=== PATIENT | female | born 2000 | race Caucasian/White ===

== ENCOUNTER 2024-08-14 19:45 | Emergency (ER) | payer SELFPAY ==
[2024-08-14 20:01] VITALS: BP 132/73; PULSE 96; TEMP 36.7; O2SAT 98; BMI 24.3
--- NOTE | 2024-08-14 20:40 | ED.FEMALEGU1 ---
HPI - Female Genitourinary General Chief complaint: Urogenital-Female Stated complaint: UTI Time Seen by Provider: 08/14/24 19:50 Source: patient Mode of arrival: walk-in Limitations: no limitations History of Present Illness HPI Narrative: 24-year-old female presenting for dysuria. It began today and she believes she has a UTI, she has had them before. She had minimal right sided back pain and no injury. No fever or gross hematuria or vomiting. Related Data Previous Rx's ?Medication ?Instructions ?Recorded cephalexin 500 mg capsule 500 mg PO TID 7 days #21 caps 08/14/24 Allergies Allergy/AdvReac Type Severity Reaction Status Date / Time No Known Drug Allergies Allergy Verified 08/14/24 20:04 Review of Systems ROS Narrative A ten point review of systems is negative except as noted above. Exam Narrative Exam Narrative: Nurses note and vital signs reviewed and patient is not hypoxic. General: The patient appears well and in no apparent distress. Patient is resting comfortably on cart. Skin: Warm, dry, no pallor noted. There is no rash noted. Head: Normocephalic, atraumatic Eye: Normal conjunctiva, no drainage Ears, Nose, Mouth, and Throat: oral mucosa is moist. Nares patent. Cardiovascular: Regular Rate and Rhythm Respiratory: Patient is in no distress, no accessory muscle use, lungs are clear to auscultation, no wheezing, rales or rhonchi Back: non-tender, no CVA tenderness bilaterally to percussion. GI: Soft and nontender Musculoskeletal: No joint swelling Neurological: A&O, normal speech Psychiatric: Cooperative Constitutional Vital Signs, click to edit/add: Last Vital Signs Temp 98.1 F 08/14/24 20:01 Pulse 96 H 08/14/24 20:01 Resp 16 08/14/24 20:01 BP 132/73 08/14/24 20:01 Pulse Ox 98 08/14/24 20:01 O2 Del Method Room Air 08/14/24 20:01 Course Vital Signs Vital signs: Vital Signs Temperature 98.1 F 08/14/24 20:01 Pulse Rate 96 H 08/14/24 20:01 Respiratory Rate 16 08/14/24 20:01 Blood Pressure 132/73 08/14/24 20:01 Pulse Oximetry 98 08/14/24 20:01 Oxygen Delivery Method Room Air 08/14/24 20:01 Temperature 98.1 F 08/14/24 20:01 Pulse Rate 96 H 08/14/24 20:01 Respiratory Rate 16 08/14/24 20:01 Blood Pressure 132/73 08/14/24 20:01 Pulse Oximetry 98 08/14/24 20:01 Oxygen Delivery Method Room Air 08/14/24 20:01 MDM - Female Genitourinary MDM Narrative Medical decision making narrative: test is negative and urinalysis suggest mild UTI. She was started on Keflex here and prescribed Keflex. Treatment diagnosis and follow-up were discussed with the patient Differential Diagnosis Differential diagnosis: Likely urinary tract infection and cystitis Lab Data Attestation: I reviewed the patient's lab results. Labs: Lab Results 08/14/24 Range/Units 20:46 Urine Color Lt. yellow (YELLOW) Urine Clarity Clear (CLEAR) Urine pH 6.0 (5.0-9.0) Ur Specific [place] <=1.005 A (1.005-1.025) Urine Protein Negative (NEG/TRACE) mg/dL Urine Glucose (UA) Negative (NEGATIVE) mg/dL Urine Ketones Negative (NEGATIVE) mg/dL Urine Occult Blood Small A (NEGATIVE) Urine Nitrite Negative (NEGATIVE) Urine Bilirubin Negative (NEGATIVE) Urine Urobilinogen 0.2 (0.2-1.0) EU/dL Ur Leukocyte Esterase Negative (NEGATIVE) Urine RBC 0-2 (0-2) #/HPF Urine WBC 5-10 A (NONE SEEN) #/HPF Ur Squamous Epith Cells Few A (NONE/RARE) #/LPF Urine Crystals None seen (None Seen) #/HPF Urine Bacteria Trace A (NONE SEEN) #/HPF Urine Casts None seen (NONE SEEN) #/LPF Urine Mucus None seen (NONE SEEN) Ur Culture Indicated? Yes Urine HCG, Qual Negative (NEGATIVE) Discharge Plan Discharge Chief Complaint: Urogenital-Female Clinical Impression: Urinary tract infection Patient Disposition: Home, Self-Care Time of Disposition Decision: 21:27 Condition: Good Mode of Transportation: Private Vehicle Prescriptions / Home Meds: New cephalexin 500 mg capsule 500 mg PO TID 7 Days Qty: 21 0RF Print Language: Syriac Instructions: Urinary Tract Infection in Women (ED) Referrals: Physician,Non-Staff, MD [Primary Care Provider] - 1 week
[2024-08-14 21:07] LABS: Bilirubin Urine NEGATIVE (NEGATIVE); Blood Urine SMALL (NEGATIVE); Clarity Urine CLEAR (CLEAR); Color Urine LT. YELLOW (YELLOW); Glucose Urine UA NEGATIVE (NEGATIVE); Ketones Urine NEGATIVE (NEGATIVE); Leukocyte Esterase Urine NEGATIVE (NEGATIVE); Nitrite Urine NEGATIVE (NEGATIVE); Protein Urine NEGATIVE (NEG/TRACE); Specific Gravity Urine <=1.005 (1.005-1.025); Urobilinogen Urine 0.2 EU/dL (0.2-1.0)
[2024-08-14 21:08] LABS: HCG Qualitative Urine* NEGATIVE (NEGATIVE); Internal Control Within Normal Limits
[2024-08-14 21:24] LABS: Bacteria Urine TRACE #/HPF (NONE SEEN); Cast Seen? NONE SEEN #/LPF (NONE SEEN); Crystals Seen? None Seen #/HPF (None Seen); Mucus Urine NONE SEEN (NONE SEEN); RBC Urine 0-2 #/HPF (0-2); Squamous Epithelial Cell Urine FEW #/LPF (NONE/RARE); Urine Culture Indicated YES
[2024-08-14] MEDS: CEPHALEXIN 500 MG CAPSULE PO (21:39)
[2024-08-17 14:50] LABS: BOX Test Reference Lab FIRELANDS
== END 2024-08-14 21:42 | disposition home or self-care (01) ==
PROVIDERS: Emergency Provider Emergency Medicine
DX: N39.0 Urinary tract infection, site not specified (principal); Z87.440 Personal history of urinary (tract) infections
CPT/HCPCS: 36415; 81001; 84703; 87086; 99283

== ENCOUNTER 2024-12-05 08:51 | Emergency (ER) | payer OTHER, SELFPAY ==
[2024-12-05] VITALS (22 sets, daily range): BP systolic 118–126; BP diastolic 81–91; PULSE 76–96; TEMP 36.7; O2SAT 94–100; BMI 24.3
--- NOTE | 2024-12-05 09:09 | ED.GENADUL1 ---
HPI HPI - General Adult General Chief complaint: Chest Pain Stated complaint: CHEST TIGHTNESS SOB HEART PALPUTATIONS Time Seen by Provider: 12/05/24 09:05 Source: patient Mode of arrival: walk-in Limitations: no limitations History of Present Illness HPI narrative: Patient states for the last 3 weeks she has had daily episodes of chest tightness, shortness of breath, palpitations and lightheadedness. She thinks it could be an anxiety attack. She does not have any history of hypertension or diabetes, heart problems or respiratory problems. She stopped vaping in July of last year. She denies drug use. Related Data Home Medications ?Medication ?Instructions ?Recorded ?Confirmed No Known Home Medications 12/05/24 12/05/24 Allergies Allergy/AdvReac Type Severity Reaction Status Date / Time No Known Drug Allergies Allergy Verified 12/05/24 08:57 Opioid HPI Opioid Management Most Recent Opioid Data: Last Pain Scale 5 08/14/24 20:51 08/14/24 Review of Systems ROS Status of ROS 10 or more systems reviewed and unremarkable except as noted in history and below PFSH PFSH Social History Little interest or pleasure in doing things: not at all Feeling down, depressed, or hopeless: not at all Exam Narrative Exam Narrative: Alert nondistressed. Vital signs are stable. Oxygen saturation is 100% room air. HEENT exam is normal to inspection. There is no proptosis. Lung sounds are clear to auscultation bilaterally with good air entry. Heart has regular rate and rhythm. S1 and S2 are normal. Abdomen soft and benign. Extremities warm and dry and there is no calf tenderness. Speech and mentation are clear and intact. There is no facial asymmetry. She moves all extremities actively. Constitutional Vital Signs, click to edit/add: Last Vital Signs Temp 98.1 F 12/05/24 08:57 Pulse 95 H 12/05/24 12:13 Resp 20 12/05/24 12:13 BP 118/81 12/05/24 12:13 Pulse Ox 97 12/05/24 12:13 O2 Del Method Room Air 12/05/24 08:57 Course Vital Signs Vital signs: Vital Signs Temperature 98.1 F 12/05/24 08:57 Pulse Rate 76 12/05/24 08:57 Respiratory Rate 18 12/05/24 08:57 Blood Pressure 126/91 12/05/24 08:57 Pulse Oximetry 100 12/05/24 08:57 Oxygen Delivery Method Room Air 12/05/24 08:57 Temperature 98.1 F 12/05/24 08:57 Pulse Rate 95 H 12/05/24 12:13 Respiratory Rate 20 12/05/24 12:13 Blood Pressure 118/81 12/05/24 12:13 Pulse Oximetry 97 12/05/24 12:13 Oxygen Delivery Method Room Air 12/05/24 08:57 Medical Decision Making MDM Narrative Medical decision making narrative: The twelve-lead EKG is interpreted by me and shows sinus rhythm with a rate of 77 bpm. [place] is normal. SD interval, QRS duration and QTc intervals are normal. There is sinus arrhythmia. No ischemic changes are noted. Patient's chest x-ray is normal. Dimer is normal. Cardiac biomarkers are normal. I am also entertaining the possibility that this may be a panic attack. She is advised follow-up with her PCP for further management. Patient remains comfortable and symptom-free in the ED. Lab Data Labs: Lab Results 12/05/24 12/05/24 Range/Units 09:10 09:50 WBC 5.2 (4.0-11.0) 10^3/uL RBC 4.41 (4.20-5.40) 10^6/uL Hgb 13.1 (12.0-16.0) g/dL Hct 37.9 (36.0-48.0) % MCV 85.9 (81.0-99.0) fL MCH 29.7 (26.7-34.0) pg MCHC 34.6 (29.9-35.2) g/dL RDW 12.1 (11.0-15.0) % Plt Count 332 (150-450) 10^3/uL MPV 9.3 L (9.5-13.5) fL Neut % (Auto) 39.4 L (43.0-75.0) % Lymph % (Auto) 45.0 (20.5-60.0) % [place] % (Auto) 10.5 (1.7-12.0) % Eos % (Auto) 4.1 (0.9-7.0) % Baso % (Auto) 0.8 (0.2-2.0) % Neut # (Auto) 2.0 (1.4-6.5) 10^3/uL Lymph # (Auto) 2.3 (1.2-3.8) 10^3/uL [place] # (Auto) 0.5 (0.3-0.8) 10^3/uL Eos # (Auto) 0.2 (0.0-0.7) 10^3/uL Baso # (Auto) 0.0 (0.0-0.1) 10^3/uL Abs Immat Gran (auto) 0.01 (0.00-0.03) 10^3/uL Imm/Tot Granulo (auto) 0.2 (0.0-0.5) % D-Dimer 0.19 (<=0.59) mg/L FEU Sodium 140 (136-145) mmol/L Potassium 3.6 (3.5-5.1) mmol/L Chloride 104 (98-107) mmol/L Carbon Dioxide 27.0 (21.0-32.0) mmol/L Anion Gap 12.6 BUN 13.0 (7.0-18.0) mg/dL Creatinine 0.77 (0.55-1.02) mg/dL Est GFR ( Amer) >60 (>=60 mL/min/1.73m^2) Est GFR (Non-Af Amer) >60 (>=60 mL/min/1.73m^2) BUN/Creatinine Ratio 16.9 Glucose 98 (74-106) mg/dL Calcium 8.9 (8.5-10.1) mg/dL Total Bilirubin 0.3 (0.2-1.0) mg/dL AST 13 L (15-37) U/L ALT 25 (14-59) U/L Alkaline Phosphatase 60 (46-116) U/L Troponin I High Sens <4.0 L (4.0-51.3) pg/mL Total Protein 7.4 (6.4-8.2) g/dL Albumin 3.7 (3.4-5.0) g/dL Globulin 3.7 g/dL Albumin/Globulin Ratio 1.0 Serum HCG, Qual Negative (NEGATIVE) Discharge Plan Discharge Chief Complaint: Chest Pain Clinical Impression: Atypical chest pain Patient Disposition: Home, Self-Care Time of Disposition Decision: 12:08 Condition: Good Mode of Transportation: Private Vehicle Prescriptions / Home Meds: No Action No Known Home Medications Print Language: New Zealander Instructions: Noncardiac Chest Pain (ED) Additional Instructions: Follow-up with PCP for further workup. Return for worsening symptoms. Referrals: Physician,Non-Staff, MD [Primary Care Provider] - 1 week Discharge Date/Time: 12/05/24 12:18
--- OUTSIDE RECORDS SUMMARY | 2024-12-05 09:14 | XMS_ITS | CCD ---
Author Organization [facility] Care Team Providers Care Film Loader Name Role Phone SWATI VELÁSQUEZ Primary Care Physician [phone] NONE, XXXX Primary Care Physician Unavailab Crescencio Agudelo Attending Unavailable Medications Current Medications Medication Drug Class(es) Dates Sig (Normalized) Sig (Original) etonogestrel 68 mg drug implant (3 sources) Progestin Start: 10-14-2020 inject 68 mg by subcutaneous injection once Nexplanon 68 mg, SubCutaneous, Once, Ordered by another provider., Refills(s) 0 Start Date: 10/14/20 Status: Ordered Problems Problem Classification Problem Date Documented Da te Episodic/Chronic Anxiety disorders (1 source) Generalized anxiety disorder 04-15-2023 Chronic Mood disorders (1 source) Mild major depression, single episode 04-15-2023 Chronic Results Test Name Value Interpretation Reference Range Facil ity Reference Laboratory Testing Ordered By: Laury Hidalgo on 02-13-2022 Test Code 479960 Invalid Interpretation Code [facility] Test Name IG PAP HPV JAY Invalid Interpretation Code [facility] Encounters Encounter Date Encounter Type Care Provider Facility Start: 12-21-2024 ambulatory Crescencio Sanders Facility:[facility] Start: 06-09-2023 End: 06-09-2023 Patient encounter procedure Shayy Lott [facility] Start: 03-25-2023 End: 03-25-2023 Patient encounter procedure Shayy Lott [facility] Start: 02-13-2022 End: 02-13-2022 Lab Drop off Roya Eason [facility] Payers Date Payer Category Payer Private Health Insurance [id number] 2000 Unknown [id number] Social History Date Type Detail Facility Start: 11-13-2020 Tobacco smoking status Light t obacco smoker (finding) [facility] Sex Assigned At Female [facility] Evaluation + Plan note Note Date & Type Note Facility Evaluation + Plan note No data available for this section [facility] Evaluation + Plan note Note Date & Type Note Facility Evaluation + Plan note Future Appointments Appointment Date:04/28/2023 04:00:00 PM Scheduled Provider:Shayy Pretty Location:[facility] Appointment Type:BH Therapy 60 Appointment Date:05/19/2023 04:00:00 PM Scheduled Provider:Shayy Pretty Location:[facility] Appointment Type:BH Therapy 60 [facility] Evaluation + Plan note Note Date & Type Note Facility Evaluation + Plan note Future Appointments Appointment Date:07/09/2023 04:00:00 PM Scheduled Provider:Katherin Gordon Location:[facility] Appointment Type:BH Therapy 60 [facility] Discharge instructions Note Date & Type Note Facility Hospital Discharge instructions No data available for this section [facility] Progress note Note Date & Type Note Facility Progress note No data available for this section [facility] Summary Purpose Family History No Family History Records Found Advance Directives No Advanced Directives Records Found Additional Source Comments Care Team (unrecognized sect ion and content) Personnel Name: SWATI VELÁSQUEZ MD Address: [address] [place] [id number] Personnel Name: NONE, XXXX Address: Address: [facility] Personnel Name: NONE, XXXX Address: Address: [facility] INFORMATION SOURCE (unrecogn ized section and content) DATE CREATED AUTHOR 12/01/2024 [facility] FOR RECORDS PERTAINING TO PATIENTS WHO ARE OR HAVE BEEN ENROLLED IN A CHEMICAL DEPENDENCY/SUBSTANCEABUSE PROGRAM, SOME INFORMATION MAY BE OMITTED. This clinical summary was aggregated from multiple sources. Caution should be exercised in using it in the provision of clinical care. This summary normalizes information from multiple sources, and as a consequence, information in this document may materially change the coding, format and clinical context of patient data. In addition, data may be omitted in some cases. CLINICAL DECISIONS SHOULD BE BASED ON THE PRIMARY CLINICAL RECORDS. [facility] [employer] [facility]. provides no warranty or guarantee of the accuracy or completeness of information in this document.
[2024-12-05 09:47] LABS: Basophils Percent Auto 0.8 % (0.2-2.0); Eosinophils Absolute Auto 0.2 10^3/uL (0.0-0.7); Eosinophils Percent Auto 4.1 % (0.9-7.0); Hematocrit 37.9 % (36.0-48.0); Hemoglobin 13.1 g/dL (12.0-16.0); Immature Granulocytes Abs Auto 0.01 10^3/uL (0.00-0.03); Immature Granulocytes Pct Auto 0.2 % (0.0-0.5); Lymphocytes Absolute Auto 2.3 10^3/uL (1.2-3.8); Mean Corpuscular HGB Conc 34.6 g/dL (29.9-35.2); Mean Corpuscular Hemoglobin 29.7 pg (26.7-34.0); Mean Corpuscular Volume 85.9 fL (81.0-99.0); Mean Platelet Volume 9.3 fL (9.5-13.5); Monocytes Absolute Auto 0.5 10^3/uL (0.3-0.8); Monocytes Percent Auto 10.5 % (1.7-12.0); Neutrophils Percent Auto 39.4 % (43.0-75.0); Platelet Count 332 10^3/uL (150-450); Red Blood Count 4.41 10^6/uL (4.20-5.40); Red Cell Distribution Width 12.1 % (11.0-15.0); White Blood Count 5.2 10^3/uL (4.0-11.0)
[2024-12-05 09:53] LABS: HCG Qualitative NEGATIVE (NEGATIVE); Internal Control Within Normal Limits
[2024-12-05 09:58] LABS: Alanine Aminotransferase 25 U/L (14-59); Albumin Level 3.7 g/dL (3.4-5.0); Alkaline Phosphatase 60 U/L (46-116); Anion Gap 12.6; Aspartate Amino Transferase 13 U/L (15-37); BUN Creatinine Ratio 16.9; Bilirubin Total 0.3 mg/dL (0.2-1.0); Calcium 8.9 mg/dL (8.5-10.1); Chloride 104 mmol/L (98-107); Estimated GFR (African America >60 (>=60 mL/min/1.73m^2); Estimated GFR (Non-African Ame >60 (>=60 mL/min/1.73m^2); Globulin 3.7 g/dL; Glucose 98 mg/dL (74-106); Potassium 3.6 mmol/L (3.5-5.1); Sodium 140 mmol/L (136-145); Total Protein 7.4 g/dL (6.4-8.2)
[2024-12-05 10:02] LABS: Troponin I High Sensitivity <4.0 pg/mL (4.0-51.3)
[2024-12-05 10:19] LABS: D Dimer 0.19 mg/L FEU (<=0.59)
--- NOTE | 2024-12-05 10:26 | XR_ITS ---
The [place] [id number] Patient Name: SUZANNE RAMON MRN: [id number] date: 2000 Sex: F Assigned Patient Location: ER Current Patient Location: ER Accession/Order Number: [id number] Exam Date: 12/05/2024 10:56 Report Date: 12/05/2024 10:57 At the request of: SABRA LAGUNAS MD Procedure: XR chest 2V PA AND LATERAL CHEST: CLINICAL HISTORY: Chest pain and tightness, shortness of breath and palpitations COMPARISON: None There is no focal parenchymal consolidation, effusion or pneumothorax. The cardiac, hilar and mediastinal silhouettes are within normal limits. There is no vascular congestion. The visualized bony thorax is intact. XR/XR chest 2V IMPRESSION: NO ACUTE CARDIOPULMONARY ABNORMALITY. Impression dictated by: Tawanna Bhandari M.D.12/05/2024 10:57 AM Dictation Location: [place] [address] Electronically authenticated by: [id number] Y Date: 12/05/2024 10:57
--- NOTE | 2024-12-05 14:23 | ECG_ITS ---
[facility] Test Date: 2024-12-05 Pat Name: SUZANNE RAMON Department: Room: - Gender: Female School Admissions Representative: : 2000 Requested By: [id number] Order Number: [id number] Reading MD: JEANNIE DELGADO M.D. Measurements Intervals [place] Rate: 77 P: 55 MA: 120 QRS: 82 QRSD: 82 T: 68 QT: 368 QTc: 399 Interpretive Statements 1100 Sinus rhythm 1102 Sinus arrhythmia 9110 normal ECG No previous ECG available for comparison Electronically Signed On 12-05-2024 19:29:43 EDT by JEANNIE DELGADO M.D.
== END 2024-12-05 12:18 | disposition home or self-care (01) ==
PROVIDERS: Emergency Provider Emergency Medicine
DX: R07.89 Other chest pain (principal); Z87.891 Personal history of nicotine dependence
CPT/HCPCS: 36415; 71046; 80053; 84484; 84703; 85025; 85378; 93005; 99284

== ENCOUNTER 2025-08-16 00:05 | Emergency (ER) | payer SELFPAY ==
[2025-08-16 00:13] VITALS: BP 119/86; PULSE 122; TEMP 38.3; O2SAT 97; BMI 24.3
--- NOTE | 2025-08-16 00:34 | ED.GENADUL1 ---
HPI HPI - General Adult General Chief complaint: Nausea/Vomiting/Diarrhea Stated complaint: VOMITING, DRY THROAT Time Seen by Provider: 08/16/25 00:29 Source: patient Mode of arrival: walk-in Limitations: no limitations History of Present Illness HPI narrative: ill past couple of days. Dry cough. Post tussive emesis. Mild nausea. Abdomen sore from vomiting. Throat is sore. Not short of breath. fever , headache and body aches. Does not believe she is Related Data Allergies Allergy/AdvReac Type Severity Reaction Status Date / Time No Known Drug Allergies Allergy Verified 08/16/25 00:13 Opioid HPI Opioid Management Most Recent Opioid Data: Last Pain Scale 8 Today, 00:13 Last MAR Pain Assessment Today, 01:12 Review of Systems ROS Status of ROS 10 or more systems reviewed and unremarkable except as noted in history and below PFSH [facility] Social History Little interest or pleasure in doing things: not at all Feeling down, depressed, or hopeless: not at all Exam Constitutional Vital Signs, click to edit/add: Last Vital Signs Temp 99.6 F 08/16/25 02:00 Pulse 117 H 08/16/25 03:50 Resp 16 08/16/25 03:50 BP 105/72 08/16/25 03:50 Pulse Ox 98 08/16/25 03:50 O2 Del Method Room Air 08/16/25 03:50 Common normals: no apparent distress, average body habitus, oriented x3, no limitations, healthy appearing, alert and well nourished [facility] Common normals: normocephalic and head/scalp atraumatic Other: mild erythema of pos. pharynx. no exudate or obvious swelling Eye Common normals: EOMs intact bilaterally and conjunctivae normal Respiratory Common normals: normal respiratory effort, no retractions, no use of accessory muscles and clear to auscultation bilaterally Cardio Common normals: regular rate, regular rhythm, S1 normal heart sound and S2 normal heart sound GI Common normals: Normal to inspection, nondistended, normoactive bowel sounds present, soft to palpation and non-tender Extremity Common normals: normal to inspection and full ROM Neuro Common normals: oriented x3, CN's II-XII intact bilaterally, moves all extremities and no focal motor deficits Psych Appearance: grossly normal Course Vital Signs Vital signs: Vital Signs Temperature 100.9 F H 08/16/25 00:13 Pulse Rate 122 H 08/16/25 00:13 Respiratory Rate 20 08/16/25 00:13 Blood Pressure 119/86 08/16/25 00:13 Pulse Oximetry 97 08/16/25 00:13 Oxygen Delivery Method Room Air 08/16/25 00:13 Temperature 99.6 F 08/16/25 02:00 Pulse Rate 117 H 08/16/25 03:50 Respiratory Rate 16 08/16/25 03:50 Blood Pressure 105/72 08/16/25 03:50 Pulse Oximetry 98 08/16/25 03:50 Oxygen Delivery Method Room Air 08/16/25 03:50 Medical Decision Making MDM Narrative Medical decision making narrative: presents with [place], dry cough, sore throat, post tussive emesis. Exam with mild erythema of the posterior pharynx. COVID19 and influenza neg. UA without evidence of infection. Patient hydrated and treated with solumedrol for her cough and toradol. strep screen neg. She is feeling better. cxray pending Lab Data Labs: Lab Results 08/16/25 08/16/25 08/16/25 Range/Units 00:25 00:55 01:30 WBC 6.2 (4.0-11.0) 10^3/uL RBC 4.57 (4.20-5.40) 10^6/uL Hgb 13.7 (12.0-16.0) g/dL Hct 39.2 (36.0-48.0) % MCV 85.8 (81.0-99.0) fL MCH 30.0 (26.7-34.0) pg MCHC 34.9 (29.9-35.2) g/dL RDW 12.0 (11.0-15.0) % Plt Count 254 (150-450) 10^3/uL MPV 9.3 L (9.5-13.5) fL Seg Neuts % (Manual) 72.0 (43.0-75.0) Band Neutrophils % 6.0 H (0-5) % Lymphocytes % (Manual) 11.0 L (20.5-60.0) % Monocytes % (Manual) 6.0 (1.7-12.0) % Eosinophils % (Manual) 2.0 (0.9-7.0) % Basophils % (Manual) 3.0 H (0.2-2.0) % Neutrophils # (Manual) 4.46 (1.4-6.5) 10^3/uL Band Neutrophils # 0.4 H (0.0-0.3) 10^3/uL Lymphocytes # (Manual) 0.68 L (1.20-3.80) 10^3/uL Monocytes # (Manual) 0.37 (0.30-0.80) 10^3/uL Eosinophils # (Manual) 0.12 (0.00-0.70) 10^3/uL Basophils # (Manual) 0.18 H (0.00-0.10) 10^3/uL Giant Platelets 2+ Plt Morphology Comment Abnormal RBC Morphology Abnormal Polychromasia 1+ Poikilocytosis 1+ Ovalocytes 1+ Stomatocytes 1+ Sodium 139 (136-145) mmol/L Potassium 3.6 (3.5-5.1) mmol/L Chloride 102 (98-107) mmol/L Carbon Dioxide 27.7 (21.0-32.0) mmol/L Anion Gap 12.9 BUN 7.0 (7.0-18.0) mg/dL Creatinine 0.73 (0.55-1.02) mg/dL Est GFR ( Amer) >60 (>=60 mL/min/1.73m^2) Est GFR (Non-Af Amer) >60 (>=60 mL/min/1.73m^2) BUN/Creatinine Ratio 9.6 Glucose 99 (74-106) mg/dL Lactate 0.7 (0.4-2.0) mmol/L Calcium 9.1 (8.5-10.1) mg/dL Total Bilirubin 0.6 (0.2-1.0) mg/dL AST 15 (15-37) U/L ALT 26 (14-59) U/L Alkaline Phosphatase 70 (46-116) U/L Total Protein 7.8 (6.4-8.2) g/dL Albumin 4.1 (3.4-5.0) g/dL Globulin 3.7 g/dL Albumin/Globulin Ratio 1.1 Urine Color (YELLOW) Urine Clarity (CLEAR) Urine pH (5.0-9.0) Ur Specific [place] (1.005-1.025) Urine Protein (NEG/TRACE) mg/dL Urine Glucose (UA) (NEGATIVE) mg/dL Urine Ketones (NEGATIVE) mg/dL Urine Occult Blood (NEGATIVE) Urine Nitrite (NEGATIVE) Urine Bilirubin (NEGATIVE) Urine Urobilinogen (0.2-1.0) EU/dL Ur Leukocyte Esterase (NEGATIVE) Urine RBC (0-2) #/HPF Urine WBC (NONE SEEN) #/HPF Ur Squamous Epith Cells (NONE/RARE) #/LPF Urine Crystals (None Seen) #/HPF Urine Bacteria (NONE SEEN) #/HPF Urine Casts (NONE SEEN) #/LPF Urine Mucus (NONE SEEN) Ur Culture Indicated? Urine HCG, Qual (NEGATIVE) Influenza Type A Ag Negative Influenza Type B Ag Negative SARS-CoV-2 Ag (CV2AG) Negative (NEGATIVE) Streptococcus Screen 08/16/25 08/16/25 Range/Units 02:20 02:50 WBC (4.0-11.0) 10^3/uL RBC (4.20-5.40) 10^6/uL Hgb (12.0-16.0) g/dL Hct (36.0-48.0) % MCV (81.0-99.0) fL MCH (26.7-34.0) pg MCHC (29.9-35.2) g/dL RDW (11.0-15.0) % Plt Count (150-450) 10^3/uL MPV (9.5-13.5) fL Seg Neuts % (Manual) (43.0-75.0) Band Neutrophils % (0-5) % Lymphocytes % (Manual) (20.5-60.0) % Monocytes % (Manual) (1.7-12.0) % Eosinophils % (Manual) (0.9-7.0) % Basophils % (Manual) (0.2-2.0) % Neutrophils # (Manual) (1.4-6.5) 10^3/uL Band Neutrophils # (0.0-0.3) 10^3/uL Lymphocytes # (Manual) (1.20-3.80) 10^3/uL Monocytes # (Manual) (0.30-0.80) 10^3/uL Eosinophils # (Manual) (0.00-0.70) 10^3/uL Basophils # (Manual) (0.00-0.10) 10^3/uL Giant Platelets Plt Morphology Comment RBC Morphology Polychromasia Poikilocytosis Ovalocytes Stomatocytes Sodium (136-145) mmol/L Potassium (3.5-5.1) mmol/L Chloride (98-107) mmol/L Carbon Dioxide (21.0-32.0) mmol/L Anion Gap BUN (7.0-18.0) mg/dL Creatinine (0.55-1.02) mg/dL Est GFR ( Amer) (>=60 mL/min/1.73m^2) Est GFR (Non-Af Amer) (>=60 mL/min/1.73m^2) BUN/Creatinine Ratio Glucose (74-106) mg/dL Lactate (0.4-2.0) mmol/L Calcium (8.5-10.1) mg/dL Total Bilirubin (0.2-1.0) mg/dL AST (15-37) U/L ALT (14-59) U/L Alkaline Phosphatase (46-116) U/L Total Protein (6.4-8.2) g/dL Albumin (3.4-5.0) g/dL Globulin g/dL Albumin/Globulin Ratio Urine Color Lt. yellow (YELLOW) Urine Clarity Cloudy A (CLEAR) Urine pH 6.0 (5.0-9.0) Ur Specific [place] 1.020 (1.005-1.025) Urine Protein Negative (NEG/TRACE) mg/dL Urine Glucose (UA) Negative (NEGATIVE) mg/dL Urine Ketones 40 A (NEGATIVE) mg/dL Urine Occult Blood Small A (NEGATIVE) Urine Nitrite Negative (NEGATIVE) Urine Bilirubin Negative (NEGATIVE) Urine Urobilinogen 0.2 (0.2-1.0) EU/dL Ur Leukocyte Esterase Negative (NEGATIVE) Urine RBC 2-5 A (0-2) #/HPF Urine WBC 2-5 A (NONE SEEN) #/HPF Ur Squamous Epith Cells None seen (NONE/RARE) #/LPF Urine Crystals None seen (None Seen) #/HPF Urine Bacteria Trace A (NONE SEEN) #/HPF Urine Casts None seen (NONE SEEN) #/LPF Urine Mucus None seen (NONE SEEN) Ur Culture Indicated? No Urine HCG, Qual Negative (NEGATIVE) Influenza Type A Ag Influenza Type B Ag SARS-CoV-2 Ag (CV2AG) (NEGATIVE) Streptococcus Screen Negative Discharge Plan Discharge Chief Complaint: Nausea/Vomiting/Diarrhea Clinical Impression: Upper respiratory infection, RAD (reactive airway disease), Acute vomiting Patient Disposition: Home, Self-Care Print Language: Romansh Instructions: Upper Respiratory Infection (DC), How to Use a Metered-Dose Inhaler and a Spacer (ED), Acute Cough (ED) Referrals: Physician,Non-Staff, MD [Primary Care Provider] - 1 week Discharge Date/Time: 08/16/25 03:55
--- NOTE | 2025-08-16 00:36 | XR_ITS ---
[address] [address] Patient Name: SUZANNE RAMON MRN: [id number] date: 2000 Sex: F Assigned Patient Location: ED.MAIN Current Patient Location: Accession/Order Number: [id number] Exam Date: 08/16/2025 03:10 Report Date: 08/16/2025 17:22 At the request of: SANDY BUCIO MD Procedure: XR chest 1V Plain film chest Single view HISTORY: Fever and cough today COMPARISON: 12/05/2024 FINDINGS: SUPPORT DEVICES: None POSTSURGICAL CHANGES: None HEART: Within normal limits PULMONARY LAVERNE: Within normal limits MEDIASTINUM: Unremarkable LUNGS AND PLEURA: Right basilar groundglass consolidation. No pleural effusion. No pneumothorax. BONY STRUCTURES: Intact ADDITIONAL FINDINGS None XR/XR chest 1V IMPRESSION: Right basilar groundglass infiltrate Impression dictated by: Danielito Esqueda M.D. 08/16/2025 5:22 PM Dictation Location: [employer] Electronically authenticated by: [id number] Date: 08/16/2025 17:22
[2025-08-16 00:41] LABS: SARS-CoV-2 Ag NEGATIVE (NEGATIVE)
[2025-08-16] MEDS: KETOROLAC TROMETHAMINE 30 MG/ML VIAL IVP (01:12)
[2025-08-16] MEDS: 0.9 % SODIUM CHLORIDE 1,000 ML 999 ML IV ×2 (01:12→02:19)
[2025-08-16] MEDS: METHYLPREDNISOLONE SOD SUCC PF 125 MG/2 ML VIAL IVP (01:13)
[2025-08-16 01:31] LABS: Hematocrit 39.2 % (36.0-48.0); Hemoglobin 13.7 g/dL (12.0-16.0); Mean Corpuscular HGB Conc 34.9 g/dL (29.9-35.2); Mean Corpuscular Hemoglobin 30.0 pg (26.7-34.0); Mean Corpuscular Volume 85.8 fL (81.0-99.0); Platelet Count 254 10^3/uL (150-450); Red Blood Count 4.57 10^6/uL (4.20-5.40); White Blood Count 6.2 10^3/uL (4.0-11.0)
[2025-08-16 01:58] LABS: Alanine Aminotransferase 26 U/L (14-59); Albumin Globulin Ratio 1.1; Albumin Level 4.1 g/dL (3.4-5.0); Alkaline Phosphatase 70 U/L (46-116); Anion Gap 12.9; Aspartate Amino Transferase 15 U/L (15-37); Blood Urea Nitrogen 7.0 mg/dL (7.0-18.0); Calcium 9.1 mg/dL (8.5-10.1); Carbon Dioxide 27.7 mmol/L (21.0-32.0); Chloride 102 mmol/L (98-107); Estimated GFR (African America >60 (>=60 mL/min/1.73m^2); Estimated GFR (Non-African Ame >60 (>=60 mL/min/1.73m^2); Globulin 3.7 g/dL; Glucose 99 mg/dL (74-106); Potassium 3.6 mmol/L (3.5-5.1); Sodium 139 mmol/L (136-145); Total Protein 7.8 g/dL (6.4-8.2)
[2025-08-16 02:00] VITALS: PULSE 117; TEMP 37.6; O2SAT 98
[2025-08-16 02:00] LABS: Lactate/Lactic Acid 0.7 mmol/L (0.4-2.0)
[2025-08-16 02:32] LABS: Band Neutrophils Absolute 0.4 10^3/uL (0.0-0.3); Lymphocytes Absolute Manual 0.68 10^3/uL (1.20-3.80); Lymphocytes Percent Manual 11.0 % (20.5-60.0); Monocytes Absolute Manual 0.37 10^3/uL (0.30-0.80); Monocytes Percent Manual 6.0 % (1.7-12.0); Segmented Neut Absolute Manual 4.46 10^3/uL (1.4-6.5); Segmented Neutrophils % Manual 72.0 (43.0-75.0)
[2025-08-16 02:33] LABS: Basophils Abs Manual 0.18 10^3/uL (0.00-0.10); Basophils Percent Manual 3.0 % (0.2-2.0); Eosinophils Absolute Manual 0.12 10^3/uL (0.00-0.70); Eosinophils Percent Manual 2.0 % (0.9-7.0); Giant Platelets 2+
[2025-08-16 02:34] LABS: Ovalocytes 1+; Poikilocytosis 1+; Polychromasia 1+; RBC Morphology ABNORMAL; Stomatocytes 1+
[2025-08-16 02:39] LABS: Glucose Urine UA NEGATIVE (NEGATIVE)
[2025-08-16 02:46] LABS: HCG Qualitative Urine* NEGATIVE (NEGATIVE)
[2025-08-16 02:57] LABS: Cast Seen? NONE SEEN #/LPF (NONE SEEN); Crystals Seen? None Seen #/HPF (None Seen); Urine Culture Indicated NO
[2025-08-16] MEDS: ALBUTEROL SULFATE 200 PUFF/6.7 GM INHALER IH (03:38)
[2025-08-16 03:50] VITALS: BP 105/72; PULSE 117; O2SAT 98
== END 2025-08-16 03:55 | disposition home or self-care (01) ==
PROVIDERS: Emergency Provider Internal Medicine
DX: J06.9 Acute upper respiratory infection, unspecified (principal); J45.909 Unspecified asthma, uncomplicated; R11.11 Vomiting without nausea; R50.9 Fever, unspecified
CPT/HCPCS: 36415; 71045; 80053; 81001; 83605; 84703; 85007; 85027; 87070; 87804; 87811; 87880; 94664; 96361; 96374; 96375; 99284; J1885; J2919